=== PATIENT | female | born 1930 | race Caucasian/White ===

== ENCOUNTER 2018-07-24 18:04 | Emergency (ER) | payer MEDICARE, OTHER ==
[~2018-07-24] VITALS: Ht 167.6 cm; Wt 47.6 kg
[2018-07-24 18:08] VITALS: BP 135/84
[2018-07-24] MEDS ORDERED: fentaNYL PF VIAL 100 MCG/2 ML VIAL IV ONE (18:30)
--- NOTE | 2018-07-24 18:49 | PHYS DOC ---
Past Medical History Past Medical History: Arthritis, Hypertension Alcohol Use: None Drug Use: None Adult General Chief Complaint Chief Complaint: MECHANICAL FALL HPI HPI Patient is a 87 year old relatively healthy female who presents with left should and left knee pain following a mechanical fall this evening. Patient was walking on a tile floor and states that her rubber-soled shoes caused her to trip and fall landing on her left arm and shoulder. She denies hitting her head or experiencing loss of consciousness. She did not experience presyncopal symptoms such as lightheadedness, dizziness, flushing, vertigo, chest pain, palpitations. She minimizes the pain by keeping her left arm adducted and held across her chest. She also believes she "strained" her knee and is complaining of pain with motion and weightbearing. Patient does not believe she struck her knee. She is not on blood thinners. Received 50 mcg of fentanyl in ambulance with improvement of her pain. Review of Systems Review of Systems Constitutional: Denies fever, chills, weakness [] Eyes: Denies change in blurred vision or diplopia [] HENT: Denies nasal congestion or sore throat [] Respiratory: Denies cough, shortness of breath or hemoptysis [] Cardiovascular: Denies chest pain, palpitations, dizziness or presyncope [] GI: Denies abdominal pain, nausea, vomiting, or diarrhea [] : Denies dysuria or hematuria [] Musculoskeletal: Reports left shoulder and knee pain [] Integument: Denies rash or skin lesions [] Neurologic: Denies headache, neck pain, focal weakness or sensory changes [] Complete review of systems found to be within normal limits, except as documented in this note. Current Medications Current Medications Current Medications Medications (Trade) Dose Ordered Sig/[facility] Start Time Stop Time Status Last Admin Dose Admin Acetaminophen (Tylenol) 500 mg 1X ONCE 07/24/18 20:30 07/24/18 20:31 DC Fentanyl Citrate (Fentanyl 2ml Vial) 25 mcg 1X ONCE 07/24/18 18:30 07/24/18 19:53 DC 07/24/18 18:38 25 MCG Tramadol HCl (Ultram) 50 mg 1X ONCE 07/24/18 20:30 07/24/18 20:31 DC Allergies Allergies Allergies Coded Allergies Type Severity Reaction Last Updated Verified Penicillins Allergy Intermediate RASH, HIVES 07/24/18 Yes Physical Exam Physical Exam Constitutional: Energetic and healthy appearing 87 year old female in pain but no acute distress. Conversing will all members of healthcare team. [] HENT: Normocephalic, atraumatic, bilateral external ears normal, oropharynx moist, no oral exudates, nose normal. [] Eyes: PERRLA, EOMI, conjunctiva normal, no discharge. [] Neck: Normal range of motion without tenderness. No midline or paraspinal tenderness. No stepoff or deformity. [] Cardiovascular:Heart rate regular rhythm, +2/6 systolic murmur [] Lungs & Thorax: Bilateral breath sounds clear to auscultation [] Abdomen: Soft and nontender. [] Skin: Warm, dry, no erythema, no rash. [] Back: No tenderness, no CVA tenderness. [] Extremities: Left arm held in adduction and across her chest. No clavicular or scapular deformity or pain. Pain on palpation of left humeral head. Pain with any movement, especially external rotation of left shoulder. Full range of motion without pain in elbow and wrist. Radial pulses +2 b/l. Left knee with tenderness at medial tibia and patella as well as with range of motion. Left knee swollen compared to right. Posterior tibial pulses +2 b/l [] Neurologic: Alert and oriented, motor function of UE intact b/l with exception of movements that illicit pain in left shoulder, motor function LE intact b/l, sensation intact throughout, no focal deficits noted. CN II-XII intact b/l. No cerebella symptoms noted. [id number] intact on right, unable to perform on left due to pain. [] Psychologic: Affect normal, judgement normal, mood normal. [] Current Patient Data Vital Signs Vital Signs Date Time Temp Pulse Resp B/P (MAP) Pulse Ox O2 Delivery O2 Flow Rate FiO2 07/24/18 18:38 16 07/24/18 18:08 97.8 74 135/84 (101) 93 Room Air 97.8 EKG EKG [] Radiology/Procedures Radiology/Procedures Knee Left 3V: No evidence of acute osseous deformity of fracture. There is possibly a cystic lesion noted in the patella. Shoulder 2+V Left: Nondisplaced fracture of left humeral neck. Initial interpretation provided by ED physician. [] Course & Med Decision Making Course & Med Decision Making Pertinent Imaging studies reviewed. (See chart for details) Patient is a pleasant and relatively healthy 87-year-old female who presents with left shoulder and left knee pain following a mechanical fall this evening. She has been energetic and conversing with all members health care staff on the emergency department. Patient states that she did not hit her head or have any loss of consciousness. She denies headache or neck pain. Neurologic exam has been completely benign without evidence of focal deficit or cerebellar dysfunction. Motor function and sensation intact. Normal range of motion without tenderness cervical spine. Given history of this patient's fall, her clinical presentation, and relatively good state of health, imaging of the head and neck was not performed. X-ray of left shoulder showed evidence of nondisplaced fracture of humeral neck. Imaging of left knee showed no acute abnormality. Patient's pain addressed with interval improvement in the ED. Adam wrap applied to her left knee. Cold compresses applied to left shoulder in the ED. Shoulder immobilizer placed. Patient states that she has a cane that she is able to use at home. Will discharge home with Rx for pain management, RICE, fall precautions as well as an orthopedic referral. Patient stable for discharge with outpatient follow-up with PCP. Discussed findings and plan with patient, who acknowledge understanding and agreement. [] Dragon Disclaimer Dragon Disclaimer This electronic medical record was generated, in whole or in part, using a voice recognition dictation system. Departure Departure Impression: Primary Impression: Shoulder fracture, left Additional Impression: Knee pain, left Disposition: 01 HOME, SELF-CARE Condition: STABLE Referrals: OG TOMAS MD Patient Instructions: Fall Prevention and Home Safety, [id number], Knee Wraps (Elastic Bandage) and RICE, Shoulder Immobilizer Scripts Tramadol Hcl (TRAMADOL HCL) 50 Mg Tablet 50 MG PO Q6HRS PRN for PRN, #14 TAB Take with 1 regular strength 325 mg over the counter Tylenol Prov: LEILA HASSAN DO 07/24/18 Problem Qualifiers Primary Impression: Shoulder fracture, left Encounter type: initial encounter Fracture type: closed Qualified Codes: S42.92XA - Fracture of left shoulder girdle, part unspecified, initial encounter for closed fracture Additional Impression: Knee pain, left Chronicity: acute Qualified Codes: M25.562 - Pain in left knee LEILA HASSAN DO July 24, 2018 18:49
[2018-07-24] MEDS ORDERED: traMADol 50 MG TABLET PO ONE (20:30)
[2018-07-24] MEDS ORDERED: ACETAMINOPHEN 500 MG TABLET PO ONE (20:30)
[2018-07-24] MEDS ORDERED: TRAM50TA PO (20:40)
--- NOTE | 2018-07-25 04:08 | RAD ---
Left shoulder 3 views. HISTORY: Fall on left side, pain 3 views were taken of the left shoulder. There is no old study for comparison. There is deformity of the proximal humerus consistent with a fracture although a subacute to old fracture is most likely, acute fractures are not absolutely excluded. There is no dislocation. IMPRESSION: 1. Deformity of the proximal humerus consistent with a fracture possibly subacute to old, CT could be of benefit. Electronically signed by: Rogelio Morales MD (07/25/2018 4:05 AM) [facility]
--- NOTE | 2018-07-25 05:56 | RAD ---
Left knee 3 views. HISTORY: Pain after a fall 3 views were taken of the left knee. There is no fracture or acute osseous abnormality. There is a small bone cyst in the patella. IMPRESSION: 1. No fracture noted in the left knee. Electronically signed by: Rogelio Morales MD (07/25/2018 5:53 AM) [facility]
== END 2018-07-24 21:40 | disposition home or self-care (01) ==
LOC: ER 18:04
DX: S42.92XA Fracture of left shoulder girdle, part unspecified, initial encounter for closed fracture (principal); M25.562 Pain in left knee; I10 Essential (primary) hypertension; Z88.0 Allergy status to penicillin; W18.09XA Striking against other object with subsequent fall, initial encounter; Y93.01 Activity, walking, marching and hiking; Y92.89 Other specified places as the place of occurrence of the external cause; Y99.8 Other external cause status
CPT/HCPCS: 29105; 73030; 73562; 96374; 99284; J3010